=== PATIENT | female | born 1995 | race African-American/Black ===

== ENCOUNTER 2018-12-21 19:39 | Emergency (ER) | payer OTHER ==
[2018-12-21] MEDS ORDERED: LIDOCAINE 2% INJ (20 MG/ML) 20 ML MDV INJ ONE (22:05)
[2018-12-21] MEDS ORDERED: LIDOCAINE 4% TRANSPARENT DRESSING 5 GM KIT TP ONE (22:06)
[2018-12-21] MEDS ORDERED: ACETAMINOPHEN 325 MG TABLET PO ONE (22:41)
[2018-12-21] MEDS ORDERED: DOXYCYCLINE HYCLATE 100 MG TABLET PO ONE (23:08)
--- NOTE | 2018-12-21 23:14 | ER Document Report ---
ED General - General Chief Complaint: Fever Stated Complaint: FEVER Time Seen by Provider: 12/21/18 22:01 Notes: Patient is a 23-year-old female presents with complaint of possible pilonidal abscess. She went to urgent care and was told to come here because she needed incision and drainage. She has had fevers intermittently. The area of swelling is been there for a week. No nausea. No vomiting. No diarrhea. She says she feels more fatigued when she has a fever. No other infectious complaints. He said she had one previously but they went away with antibiotics and did not require drainage. TRAVEL OUTSIDE OF THE [place] IN LAST 30 DAYS: No - Related Data Allergies/Adverse Reactions: No Known Allergies Allergy (Unverified 12/21/18 21:59) Past Medical History - Social History Smoking Status: Never Smoker Frequency of alcohol use: None Drug Abuse: None Family History: Reviewed & Not Pertinent Patient has suicidal ideation: No Patient has homicidal ideation: No Renal/ Medical History: Denies: Hx Peritoneal Dialysis Review of Systems - Review of Systems Notes: My Normal Review Basic REVIEW OF SYSTEMS: CONSTITUTIONAL : Fever GASTROINTESTINAL: Denies abdominal pain. Denies nausea, vomiting, or diarrhea. MUSCULOSKELETAL: Denies neck or back pain or joint pain or swelling. SKIN: Pilonidal abscess HEMATOLOGIC : Denies easy bruising or bleeding. NEUROLOGICAL: Denies altered mental status or loss of consciousness. ALL OTHER SYSTEMS REVIEWED AND NEGATIVE. Physical Exam - Vital signs Vitals: Temp Pulse Resp BP Pulse Ox 98.5 F 106 H 18 113/56 L 100 12/21/18 20:15 12/21/18 20:15 12/21/18 20:15 12/21/18 20:15 12/21/18 20:15 - Notes Notes: General Appearance: Well nourished, alert, cooperative, no acute distress, mild obvious discomfort. Not septic or toxic appearing. Vitals: reviewed, See vital signs table. Head: no swelling or tenderness to the head Eyes: PERRL, EOMI, Conjuctiva clear Back: Patient has spinal abscess with area of fluctuance as approximately 3 cm in diameter. No spreading erythema. Extremities: sgood pulses in all extremities, no edema. Skin: warm, dry, appropriate color, no rash Neuro: speech clear, oriented x 3, normal affect, responds appropriately to questions. Course - Re-evaluation Re-evalutation: 12/21/18 23:18 Abscess was incised and drained. Patient tolerated procedure well. Large amount of purulent material was expressed. Area was flushed with saline. Patient placed on doxycycline. Patient informed that she may still have some intermittent fevers of the next 24 hours. If she still having fevers after 24 hours and she should return to ER for reevaluation. Informed to keep the area clean with soap and water. I encouraged her return to ER immediately if she has recurrent fevers, vomiting, spreading redness or swelling to the area, or if she feels unwell. Patient agrees with plan will be discharged home. Dictation of this chart was performed using voice recognition software; therefore, there may be some unintended grammatical errors. - Vital Signs Vital signs: Temp Pulse Resp BP Pulse Ox 101.1 F H 106 H 18 113/56 L 100 12/21/18 21:39 12/21/18 20:15 12/21/18 20:15 12/21/18 20:15 12/21/18 20:15 Procedures - Incision and Drainage pilonidal Type: Simple Anesthetic type: 2% Lidocaine mL's of anesthetic: 2 Blade size: 11 I&D procedure: Betadine prep applied Incision Method: Incision made by scalpel Amount/type of drainage: approximately 8mls of purlent drainage Discharge - Discharge Clinical Impression: Pilonidal abscess Condition: Good Disposition: HOME, SELF-CARE Additional Instructions: Please follow up with a doctor or the ER in 3-4 days for reevaluation. You still have some intermittent fevers over the next 24 hours. Take Tylenol for fever. Please return to the ER for reevaluation if you are still having fevers after [address] you on an antibiotic called Doxycyline. Doxycycline will make your skin more sensitive to the sun so please make sure you keep your skin covered or wear sunscreen whenever out in the sun. Please return to the ER immediately if you have worsening pain, vomiting, increasing swelling, or feel unwell. Please clean the area with soap and water at least twice a day. Please place a clean gauze over the area each time after cleaning. Prescriptions: Doxycycline Hyclate 100 mg PO BID #14 capsule
[2018-12-21 23:24] VITALS: BP 122/78
== END 2018-12-21 23:22 | disposition home or self-care (01) ==
LOC: ER 19:39
PROC: 0H98XZZ Drainage of Buttock Skin, External Approach (ICD-10-PCS; principal; 2018-12-21)
DX: L05.01 Pilonidal cyst with abscess (principal); R50.9 Fever, unspecified; R53.83 Other fatigue
CPT/HCPCS: 99283; 10080; J3490 ×2